=== PATIENT | female | born 1935 | race Caucasian/White ===

== ENCOUNTER 2022-03-29 08:49 | Outpatient (CLI) | payer OTHER | END 2022-03-29 08:58 | disposition home or self-care (01) | LOC: LAB 08:49 | PROVIDERS: ATTEND Orthopaedic Surgery | DX: E55.9 Vitamin D deficiency, unspecified (principal); M85.9 Disorder of bone density and structure, unspecified; E56.1 Deficiency of vitamin K; E21.3 Hyperparathyroidism, unspecified; E88.9 Metabolic disorder, unspecified; M81.8 Other osteoporosis without current pathological fracture ==